=== PATIENT | female | born 1965 | race Caucasian/White ===

== ENCOUNTER → 2018-03-28 | Outpatient (CLI) | payer MEDICARE ==
[~2018-03-28] MED LIST: BACTRIM DS 8001 TAB PO; ELIDEL CREAM15 GM TP; FOSAMAX 70MG TA70 MG PO; HCTZ 25MG TAB25 MG PO; IMURAN 50MG TAB50 MG PO; KLOR-CON M2020 MEQ PO; MELATONIN3 M1 PO; PERCR 7.5 PO; PLAQUENIL 200M200 MG PO; PROVENTIL0.09 MG/A1 IH; REMERON 15M15 MG/TA1 PO; ULTRAM 50MG TAB50 MG PO; VITAMIN D1000 IU PO
== END ==
LOC: COL.RAD 09:31
DX: K75.4 Autoimmune hepatitis (principal); R93.2 Abnormal findings on diagnostic imaging of liver and biliary tract; K80.20 Calculus of gallbladder without cholecystitis without obstruction; I71.4 Abdominal aortic aneurysm, without rupture

== ENCOUNTER 2019-02-12 20:18 | Inpatient (IN) | payer MEDICARE ==
[~2019-02-12] VITALS: Ht 160 cm; Wt 51.3 kg
--- NOTE | 2019-02-12 21:30 | NUR ---
RECEIVED REPORT FROM MOHSEN FONG FROM [facility]. PT CAME INTO THEIR ER WITH C/O ABDOMINAL PAIN, NAUSEA AND VOMITING, GREEN DIARRHEA. ALSO PT'S SKIN IS JAUNDICE AND SCLERA WELL. PT IS A/O X4. PT HAD CT SCAN, WBC 16 CRITICAL CMP BILIRUBIN LEVELS 15.62, NA+123. ER DOCTOR THINKS SHE MAY HAVE SEPSIS. PT WAS GIVEN THERE 2 GM OF ROCHEPHIN, HAS LEFT FOREARM 22G, FENTANYL 20MCG GIVEN AT 195, ZOFRAN GIVEN AT 1741, TRAMADOL AT 180, AND GAVE ICE CHIPS. PT IS ALLERGIC TO MORPHINE. EMS, [facility], CALLED AND ADVISED THEY WERE 10 MINUTES OUT. VS WNL, HR 100 AND NSR, BP 126/75, O2 97l% ON ROOM AIR. ALSO PT WAS GIVEN 50 MCQ OF FENTANYL AT 2100, PAIN RATED AT 7/10, BUT PAIN NOW RATED AT 4/10.
[2019-02-12] MEDS ORDERED: PLAQUENIL 200M200 MG PO (22:24)
--- NOTE | 2019-02-12 22:46 | NUR ---
PT ARRIVED EMS AND SON ARRIVED AFTER SHE ARRIVED. PT'S VS WNL AND STABLE, FENTANYL WAS GIVEN 50 MCG IN ROUTE FOR ABDOMINAL PAIN. PT'S ABDOMEN IS DISTENDED AND TENDER, SKIN AND SCELRA ARE YELLOW. PT ADVISES THAT SHE HAS NOT BEEN ABLE TO URINATE AND IT IS PAINFUL WHEN SHE DOES. ALSO, PT HAS NOT HAD A BOWEL MOVEMENT FOR 5 DAYS. PT FEELS LIKE SHE HAS A KIDNEY INFECTION BECAUSE SHE HAS PLANK PAIN. NO FURTHER NEEDS CALL LIGHT WITHIN REACH.
[2019-02-12 22:51] VITALS: BP 124/67; PULSE 96; TEMP 97.2
--- NOTE | 2019-02-13 01:18 | NUR ---
PT IN BED WITH HOB AT 30 DEGREE ANGLE AND ADVISED THAT HER PAIN IS INCREASING AND IS NOW A 6/10. GAVE FENTANYL 25 MCG IV FOR PAIN. PT WAS ALSO COVERED WITH A WARM BLANKET FOR COMFORT. PT RESTING IN BED AT THIS TIME.
[2019-02-13 03:34] VITALS: BP 118/69; PULSE 93; TEMP 97.3
--- NOTE | 2019-02-13 04:00 | NUR ---
PLACED 16 SERBIAN WIN CATHETER, STERILE PROCEDURE PREFORMED, WITH 10CC OF STERILE WATER. PT HAD OUT 250ML OF ORANGISH/RED CLEAR URINE RETURN. PT HAD NOT URINATED SINCE SHE ARRIVED. PT NOW RESTING IN BED WITH HOB ELEVATED TO 30 DEGREE ANGLE. PT HAS PAIN IN ABDOMEN THAT RADIATES TO HER BACK RATED AT A 4/10 THAT IS SHARP. NO NEEDS AT THIS TIME, CALL LIGHT WITHIN REACH.
--- NOTE | 2019-02-13 06:05 | NUR ---
PT REFUSES SCDs. PT ADVISES THAT THOSE THINGS DRIVE HER NUTS AND SHE DOES NOT WANT THEM. PT IN BED WITH HOB ELEVATED TO 15 DEGREE ANGLE, SON AT BEDSIDE AND PAIN IS TOLERABLE AT THIS TIME. NO NEEDS AND CALL LIGHT WITHIN REACH.
[2019-02-13 06:31] LABS: HEMOGLOBIN 11.4 g/dl (12.5-16.0); MEAN CELL VOLUME 94 fl (80.0-100.0); MEAN CORPUSCULAR HEMOGLOBIN 34 pg (27.0-31.0); MEAN CORPUSCULAR HGB CONC 37 g/dl (33.0-37.0); MEAN PLATELET VOLUME 10.1 fl (7.4-10.4); PLATELET COUNT 89 K/mm3 (130-400); RED BLOOD COUNT 3.32 M/mm3 (4.10-5.30); REDCELL DISTRIBUTION WIDTH-CV 15.8 % (11.5-14.5)
[2019-02-13 06:35] LABS: HEMATOCRIT 31.2 % (37.0-47.0)
[2019-02-13 06:41] LABS: ALBUMIN 2.4 gm/dL (3.5-5.0); BILIRUBIN,TOTAL 12.9 mg/dL (0.0-1.0); CALCIUM 8.1 mg/dL (8.4-10.2); CREATININE, serum 0.63 (0.52-1.25); POTASSIUM 3.7 mmol/L (3.4-5.0); TOTAL PROTEIN 5.8 gm/dL (6.4-8.2)
[2019-02-13 06:47] LABS: INR 2.3 (0.8-3.0); PROTHROMBIN TIME 26.2 SECONDS (9.7-12.8)
[2019-02-13 06:57] LABS: BAND 2 % (0-10); EOSINOPHIL 7 % (0-4); LYMPHOCYTE 8 % (20.0-51.0); MYELOCYTE 2 % (0-0); NEUTROPHILS 73 % (42.0-75.2); PLATELET ESTIMATE DECREASED (NORMAL)
[2019-02-13 06:58] LABS: ANISOCYTOSIS 1+; TARGET CELLS 3+
[2019-02-13 06:59] LABS: TOXIC GRANULATION PRESENT
[2019-02-13 08:32] VITALS: BP 120/64; PULSE 99; TEMP 98.2
--- NOTE | 2019-02-13 09:11 | NUR ---
Patient assessment complete. Lung sounds diminished, bowel sounds present. Abdomen distended and firm. Per patient "this is better than it was yesterday but still in pain". No edema noted, pulses strong bilaterally. Heart RRR. Patient on room air, denies SOB, dizziness, palpitations, N/V. LFA IV has fluids running, no complications. Denies other needs at this time. Patient headed down for ultrasound and possible paracentesis.
[2019-02-13 10:28] LABS: PERITONEAL -POLYMORPHONUCLEAR 18.1 % (0-25); PERITONEAL FLUID RBC 1000 /mm3 (0-0)
--- NOTE | 2019-02-13 11:09 | NUR ---
BRIDGETTE student attended clinical rounding and met with the patient and her son Eliseo to discuss discharge planning. The patient recently moved in with her son Eliseo and they now reside in [place]. The patient reports independence with ADLs and has no DME. The patients PCP is Dr. Atiya Lucio and she gets her medications from [facility] pharmacy on [address]. The patient reports no difficulties obtaining her medications and states that her son helps roll picker her medications. The patient does not have DPOA-HC in EMR but was interested in completing one. BRIDGETTE provided a DPOA-HC form and will follow up to witness sign. The patient plans to return home with her son Eliseo upon discharge. No additional needs anticipated at this time.
--- NOTE | 2019-02-13 14:30 | NUR ---
patient in bed with son at bedside. patient has ordered lunch, tsang catheter draining dark urine. IVF infusing. Patient has no complaints at this time. Call light within reach.
[2019-02-13 16:19] VITALS: BP 120/66; PULSE 116; TEMP 97.8
--- NOTE | 2019-02-13 19:42 | NUR ---
CALLED LUPILLO GARRETT AND ADVISED THAT PT HAD WIN BAG ON BED NEXT TO HER AND URINE WAS DRAINING BACK UP THE TUBE. ALSO, PT REQUESTED TO HAVE WIN CATHETER TAKEN OUT. RECEIVED ORDERS FROM LUPILLO GARRETT TO DISCONTINUE THE WIN CATHETER.
--- NOTE | 2019-02-13 20:09 | NUR ---
PT IN BED WITH HOB ELEVATED TO 45 DEGREE ANGLE, REMOVED WIN CATHETER REQUESTED. TAKEN OUT 10CC OF STERILE WATER FROM [facility]. PT ADVISES THAT PAIN AT THIS TIME IS AT A 5/10 THAT IS INTERMITTEN SHARP PAIN IN ABDOMEN THAT RADIATES TO BACK. CALL LIGHT WITHIN REACH.
--- NOTE | 2019-02-13 20:22 | NUR ---
Report given to HETAL Ash.
[2019-02-13 20:32] VITALS: BP 119/63; PULSE 86; TEMP 97.4
--- NOTE | 2019-02-13 21:26 | NUR ---
PT AND PT'S SON REQUESTED NICOTINE PATCH. PT'S SON ADVISES THAT SHE SMOKES 2 PACKS A DAY. CALLED LUPILLO GARRETT OF HER REQUEST FOR A NICOTINE PATCH. LUPILLO GARRETT PUT ORDER IN FOR NICOTINE PATCH.
--- NOTE | 2019-02-13 22:53 | NUR ---
PT WAS GIVEN FENTANYL FOR PAIN AND PT ADVISED THAT SHE WANTED TO TRY AND SLEEP MUCH POSSIBLE. PT HAD NICOTINE PATCH PLACED ON RIGHT UPPER SHOULDER BLADER. PT'S SON HAD LEFT. PT IN BED RESTING WITH HOB ELEVATED TO 45 DEGREE ANGLE. NO FURTHER NEEDS CALL LIGHT WITHIN REACH.
[2019-02-13 23:35] VITALS: BP 122/66; PULSE 99; TEMP 98.9
--- NOTE | 2019-02-13 23:50 | NUR ---
PT WAS ADVISED THAT SHE WAS GOING TO BE NPO. PT WAS GIVEN A SNACK TO EAT BEFORE MIDNIGHT. PT DID NOT MAKE IT TO THE BATHROOM AND URINATED IN A SMALL MOUTH BASIN. PT ADVISED THAT SHE HAD URINATED X3 SINCE THE CATHETER HAS BEEN REMOVED. PT ADVISES THAT SHE IS PEEING A LITTLE AT A TIME, BUT IT IS COMING OUT. PLACED COMMODE AT BEDSIDE FOR PT. NO FURTHER NEEDS AND CALL LIGHT WITHIN REACH.
[2019-02-14] VITALS (17 sets, daily range): BP systolic 101–136; BP diastolic 62–85; PULSE 78–90; TEMP 97.6–98.7
--- NOTE | 2019-02-14 01:20 | NUR ---
PT REQUESTED TO HAVE WIN CATHETER PLACED BACK IN. PT ADVISED THAT SHE IS VERY UNCOMFORTABLE AND IS UNABLE TO VOID NOW. CALLED LUPILLO GARRETT AND ADVISED THAT PT WANTS A WIN AGAIN. LUPILLO GARRETT ADVISED GAVE ORDERS TO DO A BLADDER SCAN AND CALL HER BACK WITH THE RESIDUALS.
--- NOTE | 2019-02-14 02:03 | NUR ---
PT WAS BLADDER SCANNED AND ONLY HAD 195 ML OF RESIDUAL IN HER BLADDER. LUPILLO CHIEF UNIT FORESTER NOTIFIED. LUPILLO CHIEF UNIT FORESTER GAVE ORDER OF ATIVAN 1MG IV, FOR ANXIETY. PT IS ANXIOUS DUE TO BIOPSY IN AM. ALSO, PT HAS PAIN AT 7/10 IN ABD/BACK, FENTANYL GIVEN FOR PAIN.
--- NOTE | 2019-02-14 04:44 | NUR ---
BLADDER SCANNED PT AND PT ONLY HAD 264 ML OF RESIDUAL URINE IN BLADDER. PT STILL HAS NOT BEEN ABLE TO URINATE. PT IN BED RESTING COMFORTABLY WITH HOB AT 30 DEGREE ANGLE, PT DENIES PAIN AT THIS TIME. NO NEEDS AND CALL LIGHT WITHIN REACH.
[2019-02-14 07:21] LABS: HEMOGLOBIN 11.6 g/dl (12.5-16.0); MEAN CELL VOLUME 95 fl (80.0-100.0); MEAN CORPUSCULAR HEMOGLOBIN 34 pg (27.0-31.0); MEAN CORPUSCULAR HGB CONC 36 g/dl (33.0-37.0); MEAN PLATELET VOLUME 9.7 fl (7.4-10.4); PLATELET COUNT 62 K/mm3 (130-400); RED BLOOD COUNT 3.39 M/mm3 (4.10-5.30); REDCELL DISTRIBUTION WIDTH-CV 16.5 % (11.5-14.5)
[2019-02-14 07:25] LABS: HEMATOCRIT 32.1 % (37.0-47.0)
[2019-02-14 07:27] LABS: INR 2.3 (0.8-3.0); PROTHROMBIN TIME 25.6 SECONDS (9.7-12.8)
[2019-02-14 07:39] LABS: ALBUMIN 2.2 gm/dL (3.5-5.0); BILIRUBIN,TOTAL 13.8 mg/dL (0.0-1.0); CALCIUM 7.7 mg/dL (8.4-10.2); CREATININE, serum 0.48 (0.52-1.25); POTASSIUM 3.7 mmol/L (3.4-5.0); TOTAL PROTEIN 5.8 gm/dL (6.4-8.2)
[2019-02-14 08:26] LABS: ANISOCYTOSIS 1+; BASOPHIL 2 % (0-2); EOSINOPHIL 1 % (0-4); LYMPHOCYTE 7 % (20.0-51.0); NEUTROPHILS 81 % (42.0-75.2); PLATELET ESTIMATE DECREASED (NORMAL); TARGET CELLS 3+
--- NOTE | 2019-02-14 11:09 | NUR ---
Began FFP transfusion. This nurse will stay at bedsice for first 15 min. Informed pt of any adverse affects and informed her to alert nurse if she feels any flushing, shortness of breath or increased heart rate.
--- NOTE | 2019-02-14 11:16 | NUR ---
Pt lying in bed eyes closed, awakens to verbal stimuli. Denies any pain at this moment. Pt face is jaundice, abdomen distended, slightly firm. Breathing even and unlabored. Completed morning assessment. Pt C/O being weak and tired, still NPO and requesting water. Small sip of water given with morning medication. Denies any other needs at this time. Will continue to monitor.
--- NOTE | 2019-02-14 11:28 | NUR ---
No adverse reactions in the first 15 min, put on 500ml an hour. Will continue to monitor.
[2019-02-14 12:58] LABS: INR 1.9 (0.8-3.0); PROTHROMBIN TIME 21.4 SECONDS (9.7-12.8)
--- NOTE | 2019-02-14 14:26 | NUR ---
BEGAN FFP ADMINISTRATION. PT AWARE OF ALL ADVERSE AFFECTS. VITALS STABLE THIS RN WILL STAY AT BEDSIDE FOR FIRST 15 MIN.
--- NOTE | 2019-02-14 14:40 | NUR ---
Pt down to CT for liver biopsy. FFP still transfusing. Two new IV started to right arm, 22g to RF and 20g to RH.
--- NOTE | 2019-02-14 14:50 | NUR ---
PT IS BROUGHT INTO THE ROOM AND PLACEDON THE BED. MONITORING EQUIPMENT PLACED ON PT. TIME OUT DONE.
--- NOTE | 2019-02-14 15:05 | NUR ---
REPORT CALLED TO CASEY FONG. PT HAD NO MEDS GIVEN. GELFOAM SLURRY GIVEN THROUGH INTRODUCER NEEDLE. VSS THROUGHT PROCEDURE.
--- NOTE | 2019-02-14 15:26 | NUR ---
Pt back to floor from procedure. FFP transfusion complete. Vital signs stable, pt drowsy but alert and oriented. Denies any pain at this time,
--- NOTE | 2019-02-14 15:37 | NUR ---
COMPLETED BLADDER SCAN, 500ML RESIDUAL, PT STATES SHE IS UNABLE TO URINATE. CALLED SIMONA KLEIN AND NOTIFIED HER.
--- NOTE | 2019-02-14 18:18 | NUR ---
Pt lying in bed, breathing even and unlabored. C/O pain 6/10 to abdomen. Medications administered per emar. Denies any other needs. Son in room, ordering dinner. Call light in reach.
--- NOTE | 2019-02-14 22:00 | NUR ---
Completed medication administration and assessment; PT able to tolerate all cares and medications; PT expressed concern about having bowel movement; PT has bowel sounds, is passing gas, and has had some undocumented liquid stool per report to hospitalist; No further assessed or verbalized needs at time of exit; PT able to return to comfortable position in bed with personal items and call light within reach; PT A&Ox4, BS active x4, HRRR, skin jaundice, with yellowing of the sclera, distended ADB, voiding without pain/discomfort, NS continues to run at 60ml/hr to RFA IV; Will continue to monitor. CDA
--- NOTE | 2019-02-15 03:07 | NUR ---
PT resting well in bed intermittently; PT able to void throughout night without C/O discomfort or fullness; No further assessed or verbalized concerns at times of rounds; PT able to return to a comfortable position in bed with personal item and call light within reach; Will continue to monitor. CDA
[2019-02-15 04:33] VITALS: BP 113/68; PULSE 85; TEMP 97.9
--- NOTE | 2019-02-15 07:17 | NUR ---
Report given to HETAL Oliva; No significant changes or concerns at time of shift change. CDA
[2019-02-15 07:21] VITALS: BP 116/66; PULSE 89; TEMP 98.2
[2019-02-15 07:48] LABS: HEMOGLOBIN 11.2 g/dl (12.5-16.0); MEAN CELL VOLUME 98 fl (80.0-100.0); MEAN CORPUSCULAR HEMOGLOBIN 35 pg (27.0-31.0); MEAN CORPUSCULAR HGB CONC 36 g/dl (33.0-37.0); MEAN PLATELET VOLUME 10.2 fl (7.4-10.4); PLATELET COUNT 53 K/mm3 (130-400); RED BLOOD COUNT 3.22 M/mm3 (4.10-5.30); REDCELL DISTRIBUTION WIDTH-CV 16.8 % (11.5-14.5)
[2019-02-15 07:49] LABS: HEMATOCRIT 31.4 % (37.0-47.0)
[2019-02-15 07:51] LABS: PROTHROMBIN TIME 22.4 SECONDS (9.7-12.8)
[2019-02-15 07:54] LABS: ALBUMIN 2.4 gm/dL (3.5-5.0); BILIRUBIN,TOTAL 15.7 mg/dL (0.0-1.0); CALCIUM 7.9 mg/dL (8.4-10.2); CREATININE, serum 0.38 (0.52-1.25); POTASSIUM 3.2 mmol/L (3.4-5.0)
[2019-02-15 08:14] LABS: ANISOCYTOSIS 1+; BAND 8 % (0-10); EOSINOPHIL 1 % (0-4); LYMPHOCYTE 7 % (20.0-51.0); METAMYELOCYTE 1 % (0-0); NEUTROPHILS 73 % (42.0-75.2); PLATELET ESTIMATE DECREASED (NORMAL)
[2019-02-15 08:17] LABS: TARGET CELLS 1+
[2019-02-15 13:24] VITALS: BP 122/75; PULSE 88; TEMP 98.2
[2019-02-15 15:39] VITALS: BP 125/74; PULSE 91; TEMP 98
[2019-02-15 20:29] VITALS: BP 138/83; PULSE 93; TEMP 98.4
--- NOTE | 2019-02-15 20:30 | NUR ---
Completed assessment and medication administration; PT able to tolerate all cares well; No further assessed or verbalized concerns at time of exit; PT A&Ox4, BS active x4 lungs CTAB with bilateral diminished bases, IND AMB in room and to bathroom; PT able to return to comfortable position in bed with personal items and call light within reach; Will continue to monitor. CDA
--- NOTE | 2019-02-16 | NUR ---
PT experienced bowel incontience; Total bed change provided; PT opted to lay on window couch for change of position and better comfort. Will continue to monitor. CDA
[2019-02-16 01:01] VITALS: BP 141/83; PULSE 81; TEMP 97.6
--- NOTE | 2019-02-16 03:22 | NUR ---
PT resting well in bed; No further assessed or verbalized concerns or complaints at time of rounds; PT resting in comfortable position in bed with personal items and call light within reach; Will continues to monitor. CDA
[2019-02-16 04:38] VITALS: BP 124/81; PULSE 94; TEMP 97.8
--- NOTE | 2019-02-16 06:59 | NUR ---
Report given to HETAL Oliva; No significant changes or concerns at time of shift change. CDA
[2019-02-16 07:12] LABS: HEMOGLOBIN 12.6 g/dl (12.5-16.0); MEAN CELL VOLUME 98 fl (80.0-100.0); MEAN CORPUSCULAR HEMOGLOBIN 35 pg (27.0-31.0); MEAN CORPUSCULAR HGB CONC 36 g/dl (33.0-37.0); MEAN PLATELET VOLUME 10.6 fl (7.4-10.4); PLATELET COUNT 59 K/mm3 (130-400); RED BLOOD COUNT 3.61 M/mm3 (4.10-5.30); REDCELL DISTRIBUTION WIDTH-CV 17.8 % (11.5-14.5)
[2019-02-16 07:14] LABS: HEMATOCRIT 35.3 % (37.0-47.0)
[2019-02-16 07:20] LABS: INR 2.1 (0.8-3.0)
[2019-02-16 07:23] LABS: ALBUMIN 2.5 gm/dL (3.5-5.0); BILIRUBIN,TOTAL 19.5 mg/dL (0.0-1.0); CALCIUM 8.1 mg/dL (8.4-10.2); CREATININE, serum 0.41 (0.52-1.25); MAGNESIUM 1.8 mg/dL (1.6-2.3); POTASSIUM 3.3 mmol/L (3.4-5.0); TOTAL PROTEIN 6.3 gm/dL (6.4-8.2)
[2019-02-16 07:28] LABS: ANISOCYTOSIS 1+; BAND 11 % (0-10); EOSINOPHIL 1 % (0-4); LYMPHOCYTE 4 % (20.0-51.0); METAMYELOCYTE 1 % (0-0); NEUTROPHILS 76 % (42.0-75.2); PLATELET ESTIMATE DECREASED (NORMAL)
[2019-02-16 09:20] VITALS: BP 125/75; PULSE 98; TEMP 98.3
[2019-02-16 11:23] VITALS: BP 127/80; PULSE 94; TEMP 98.7
[2019-02-16 14:57] VITALS: BP 118/72; PULSE 87; TEMP 97.2
--- NOTE | 2019-02-16 20:00 | NUR ---
Patient resting in bed, some nausea- doesn't want anything yet. Assessment completed. Given PO lactulose, no N/V. Given pain medication right before evening shift- controlled. NO further needs at this time.
[2019-02-16 20:19] VITALS: BP 142/87; PULSE 91; TEMP 98.2
[2019-02-17 00:10] VITALS: BP 131/77; PULSE 93; TEMP 97.8
[2019-02-17 03:59] VITALS: BP 131/79; PULSE 91; TEMP 97.9
--- NOTE | 2019-02-17 04:53 | NUR ---
Pt slept mosto f the night, VSS, afebrile, blood sugars stable in 90's. No needs at this time.
[2019-02-17 06:36] LABS: MUCOUS Present /lpf; URINE BACTERIA Many /hpf
[2019-02-17 06:37] LABS: PH 6 (5-8); URINE APPEARANCE Turbid; URINE BILIRUBIN Positive (NEGATIVE); URINE BLOOD 1+ (NEGATIVE); URINE COLOR Red; URINE GLUCOSE Negative (NEGATIVE); URINE KETONE Trace (NEGATIVE); URINE LEUKOCYTE ESTERASE Negative (NEGATIVE); URINE NITRATE Negative (NEGATIVE); URINE PROTEIN(semi-quant) 1+ (NEGATIVE); URINE UROBILINOGEN >=4.0 mg/dL (NEGATIVE)
--- NOTE | 2019-02-17 06:52 | NUR ---
REPORT GIVEN TO HETAL ENRIQUEZ
[2019-02-17 06:54] LABS: COLLECTION METHOD CLEAN CATCH
[2019-02-17 07:49] LABS: HEMOGLOBIN 13.1 g/dl (12.5-16.0); MEAN CELL VOLUME 98 fl (80.0-100.0); MEAN CORPUSCULAR HEMOGLOBIN 35 pg (27.0-31.0); MEAN CORPUSCULAR HGB CONC 36 g/dl (33.0-37.0); MEAN PLATELET VOLUME 10.4 fl (7.4-10.4); PLATELET COUNT 59 K/mm3 (130-400); RED BLOOD COUNT 3.74 M/mm3 (4.10-5.30)
[2019-02-17 07:55] LABS: HEMATOCRIT 36.7 % (37.0-47.0)
[2019-02-17 08:01] VITALS: BP 126/73; PULSE 94; TEMP 97.9
--- NOTE | 2019-02-17 08:10 | NUR ---
Assessment complete. Pt is AXO X3, states she has pain in her ABD rated at a 9/10. Breathing is even and unlabored on room air. Tele on. RF and RH INT's both flush easily, remain free of complications, and are CDI. Pt has friends at the bedside. She is resting quielty in the bed at this time and she denies further needs. Call light within reach, will continue to monitor.
[2019-02-17 08:13] LABS: ALBUMIN 2.4 gm/dL (3.5-5.0); BILIRUBIN,TOTAL 20.4 mg/dL (0.0-1.0); CALCIUM 8.1 mg/dL (8.4-10.2); CREATININE, serum 0.47 (0.52-1.25); POTASSIUM 3.3 mmol/L (3.4-5.0); TOTAL PROTEIN 6.3 gm/dL (6.4-8.2)
[2019-02-17 08:57] LABS: EOSINOPHIL 1 % (0-4); LYMPHOCYTE 6 % (20.0-51.0); NEUTROPHILS 90 % (42.0-75.2); PLATELET ESTIMATE DECREASED (NORMAL)
[2019-02-17 08:58] LABS: TEAR DROP CELLS 1+
--- NOTE | 2019-02-17 10:58 | NUR ---
BRIDGETTE attended clinical rounds. Also present was palliative care nurse, Martha. The hospitalist discussed the patient's prognosis and the option of hospice. The patient reports that she is not wanting chemo and would like to focus on comfort and return home on hospice. BRIDGETTE and palliative care nurse, Martha, then followed up with the patient, the patient's son (Eliseo), and her friends. The patient's family are supportive of the patient's decision. The son is reporting that they will need help for 24 hour care, while he is at work. BRIDGETTE provided the patient and patient's friend with a list of agencies that can provide 24 hour care and their prices. The patient's friend reports that she will give the list to the patient's son and that they then look over it. Palliative Care Nurse, Martha, also discussed the different agencies that provide hospice in the home. The patient's family plan to discuss the options. SW to continue to follow.
--- NOTE | 2019-02-17 11:46 | NUR ---
The patient's son, Eliseo, informed BRIDGETTE that they have chosen [facility] and would like to meet with them today. BRIDGETTE contacted and faxed a referral to [facility]. [facility] reports that they can have have one of their representatives meet with the patient and patient's son today around 1300. SW informed the patient's son. SW to continue to follow.
--- NOTE | 2019-02-17 12:06 | NUR ---
Palliative care nurse and social media project manager met with family after rounding to further discuss options of going home with hospice services. Pt has completed a DPOA-HC and it is on the chart naming her son Eliseo and friend Fco. After discussion, family has decided to meet with [facility] and discuss their situation with them. Son Eliseo has asked for names of agencies that could provide signal inspector care when family is not able to be there. [facility] representative should be here around 1pm to meet with pt and her son. Pt did advise this nurse that she is allergic to morphine as it makes her throw up! SIMONA Lauren, advised of this concern. Comfort quilt provided. Comfort care basket requested.
[2019-02-17 12:23] VITALS: BP 135/80; PULSE 88; TEMP 98
--- NOTE | 2019-02-17 14:49 | NUR ---
Dr Wood was notified of [facility]'s request to place pleurx drain for ascites but after discussion with radiologist, we will not be able to have drain placed. There is too little fluid to place the drain safely and her PT/INR is high and would be very difficult to get PT/INR to a safe level to attempt drain placement. Alisa with [facility] notified.
[2019-02-17 16:01] VITALS: BP 138/81; PULSE 95; TEMP 97.8
--- NOTE | 2019-02-17 19:24 | NUR ---
Pt has been resting on and off throughout the day. She has had constant pain in her ABD. Pain medication administered on DEC. Family members have been at the bedside; all questions answered. Pt is resting quietly in the bed at this time and she denies further needs. Call light within reach. Report given to HETAL Oliveira.
[2019-02-17 19:36] VITALS: BP 132/77; PULSE 86; TEMP 98.7
--- NOTE | 2019-02-17 20:03 | NUR ---
Patient resting in bed [facility] family at bedside. Assessment copmleted, no reports of pain. VSS, afebrile. Pt took evening medications. IV flushed, no complications. No needs at this time.
[2019-02-18 00:40] VITALS: BP 141/78; PULSE 93; TEMP 98.2
[2019-02-18 04:25] VITALS: BP 137/69; PULSE 85; TEMP 98.1
--- NOTE | 2019-02-18 04:53 | NUR ---
Pt slept most ofhte night, no reports of pain, VSS. NO needs at this time.
[2019-02-18 06:27] LABS: HEMOGLOBIN 13.2 g/dl (12.5-16.0); MEAN CELL VOLUME 94 fl (80.0-100.0); MEAN CORPUSCULAR HEMOGLOBIN 35 pg (27.0-31.0); MEAN CORPUSCULAR HGB CONC 37 g/dl (33.0-37.0); MEAN PLATELET VOLUME 10.4 fl (7.4-10.4); PLATELET COUNT 71 K/mm3 (130-400); RED BLOOD COUNT 3.78 M/mm3 (4.10-5.30); REDCELL DISTRIBUTION WIDTH-CV 19.1 % (11.5-14.5)
[2019-02-18 06:28] LABS: HEMATOCRIT 35.7 % (37.0-47.0)
[2019-02-18 06:35] LABS: INR 2.4 (0.8-3.0); PROTHROMBIN TIME 27.1 SECONDS (9.7-12.8)
[2019-02-18 06:38] LABS: ALBUMIN 2.4 gm/dL (3.5-5.0); CALCIUM 7.9 mg/dL (8.4-10.2); CREATININE, serum 0.55 (0.52-1.25); MAGNESIUM 1.8 mg/dL (1.6-2.3); POTASSIUM 3.5 mmol/L (3.4-5.0); TOTAL PROTEIN 6.2 gm/dL (6.4-8.2)
--- NOTE | 2019-02-18 07:10 | NUR ---
report given to ramila acrmen
[2019-02-18 07:45] LABS: BAND 4 % (0-10); LYMPHOCYTE 2 % (20.0-51.0); NEUTROPHILS 92 % (42.0-75.2); PLATELET ESTIMATE DECREASED (NORMAL)
[2019-02-18 07:46] LABS: ANISOCYTOSIS 2+; TARGET CELLS 1+
[2019-02-18 08:26] VITALS: BP 136/65; PULSE 102; TEMP 98.2
--- NOTE | 2019-02-18 09:06 | NUR ---
Alisa, from [facility], reports that they can accept the patient. The patient's son, Eliseo, reports that he plans to take a leave of absence from work; so that he can be in the home at all times. The patient's son would like to use today, 02/18, to get things at work all figured out and to get the DME in the home. SW to continue to follow.
--- NOTE | 2019-02-18 09:25 | NUR ---
Pt reports her pain medication has been working pretty well but she gets awakened frequently with people coming in to check on her. She has been accepted by [facility], her pathology has come back with diagnosis of pancreatic cancer based on tissue sample and [id number]. her family is using today to get things ready for her at home with discharge planned tomorrow.
--- NOTE | 2019-02-18 09:57 | NUR ---
Patient laying in bed. Assessment complete. Lung sounds diminished. Heart rate tachy. Bowel sounds present. Patient is jaundice. States she is nauseous but only "gagging", no vomiting. States her back and abdomen are hurt, pain is 7/10. Received fentanyl. Denies SOB, chest pain, dizziness. Denies palpitations. Radial pulses strong bilaterally. Abdomen is distended and firm. Patient declined bed change. Extremities cool. Patient denies other needs at this time. Call light within reach.
--- NOTE | 2019-02-18 11:21 | NUR ---
First visit from the psychiatric specialist. No needs right now.
--- NOTE | 2019-02-18 11:39 | NUR ---
In response to pt's request, we have ordered some sherbert for her to try and her friend has gone to get her some watermelon. We are starting her on a fentanyl patch and will try roxanol to see how she tolerates it here. I spoke with Nieves, safety investigator, who will order a fruit smoothie for her around 2pm today to see if we can find something she can eat even a little of. I also gave her some printed information on foods that have high calories, are best tolerated with nausea, and suggested snacks. I explained to her that it will be an experiment to see what works and what doesn't but it is my hope that at least some of these suggestions might work for her.
--- NOTE | 2019-02-18 16:47 | NUR ---
BRIDGETTE contacted the patient's son, Eliseo, to follow up on the status of him taking a leave of absence from work. Eliseo informed BRIDGETTE that he plans to finish out this week of work and will have help from his family members. He states that his aunt is coming down tomorrow evening and then his grandpa will be coming to help. Eliseo also informed BRIDGETTE that [facility] delivered all of the patient's DME to their home this morning. BRIDGETTE to continue to follow.
--- NOTE | 2019-02-18 18:24 | NUR ---
Patient has had uneventful day. Pain well controlled with fentanyl patch and k-pack. Patient has slept throughout the day. Son and friend at bedside earlier in the day. Patient has not had much of an appetite. Patient rating pain at 9/10. Patient cooperative with cares throughout the day, not very talkative. Denies other needs at this time.
--- NOTE | 2019-02-18 19:10 | NUR ---
Report given to HETAL Oliveira.
--- NOTE | 2019-02-18 19:43 | NUR ---
Patient resting in bed. Given pain medication prior to evening shift- pt does not report any pain at this time. On comfort cares. Given cup of ice an danother cup of ice water. No needs at this time.
--- NOTE | 2019-02-19 07:04 | NUR ---
Pt slept on/off last night, given pain medication x1 and nausea medication x1 towards beginning of shift. Report given to HETAL Oliva.
[2019-02-19] MEDS ORDERED: FENTANYL 25 MCG TD (09:01)
[2019-02-19] MEDS ORDERED: ROXANOL 20MG20 MG/ML SL (09:01)
[2019-02-19] MEDS ORDERED: ATIVAN 0.50.5 MG/TAB PO (09:02)
[2019-02-19] MEDS ORDERED: LACTULOSE10 GM/153 PO (09:02)
[2019-02-19] MEDS ORDERED: DULCOLAX S10 MG/SUPP RC (09:02)
[2019-02-19] MEDS ORDERED: TRANSDERM-0.5 MG/21 TD (09:03)
[2019-02-19] MEDS ORDERED: ZOFRAN ODT4 MG PO (09:03)
[2019-02-19] MEDS ORDERED: MIRALAX PA17 GM/Dose PO (09:03)
--- NOTE | 2019-02-19 09:58 | NUR ---
Talked with patient again this morning. She reports her pain is pretty well managed with the patch. She did tell me that she had tried roxanol once "but thinks something made her throw up". She is anxious to get home so she can sleep. She reports that things are ready at home for her. Jojo JARVIS has seen pt and will be finishing discharge orders.
--- NOTE | 2019-02-19 10:26 | NUR ---
The patient is to discharge back home today, 02/19, on hospice through [facility]. Transportation was set for around 1030, via [facility]. BRIDGETTE informed the patient, patient's son, nurse, and [facility]. They were all in agreeance. BRIDGETTE also presented and explained the IM form to the patinet's son (Eliseo). The patient's son verbalized understanding, signed, and he was provided a copy. The patient and patient's son was also interested in completing a General DPOA-HC. BRIDGETTE notified Viki grimm. Viki riosarized the form. BRIDGETTE and mexican food cook, juliane Suarez. No additional needs at this time.
--- NOTE | 2019-02-19 11:30 | NUR ---
Pt transported to home with Hospice with EMS. Son at bedside - all belongings sent with pt
== END 2019-02-19 11:30 | disposition hospice, home (50) | DRG 435 ==
LOC: MEDICAL 20:18
PROVIDERS: Internal Medicine; Internal Medicine Gastroenterology; Nurse Practitioner; Physician Assistant; ADMIT Hospitalist
PROC: 0W9G3ZZ Drainage of Peritoneal Cavity, Percutaneous Approach (ICD-10-PCS; 2019-02-13)
PROC: 0FB23ZX Excision of Left Lobe Liver, Percutaneous Approach, Diagnostic (ICD-10-PCS; principal; 2019-02-14)
DX: C25.9 Malignant neoplasm of pancreas, unspecified (principal); E43 Unspecified severe protein-calorie malnutrition; E87.1 Hypo-osmolality and hyponatremia; R18.8 Other ascites; R65.10 Systemic inflammatory response syndrome (SIRS) of non-infectious origin without acute organ dysfunction; E72.20 Disorder of urea cycle metabolism, unspecified; C78.7 Secondary malignant neoplasm of liver and intrahepatic bile duct; I78.1 Nevus, non-neoplastic; K74.60 Unspecified cirrhosis of liver; E87.6 Hypokalemia; Z66 Do not resuscitate; R30.0 Dysuria; Z68.20 Body mass index [BMI] 20.0-20.9, adult; E88.09 Other disorders of plasma-protein metabolism, not elsewhere classified; R91.1 Solitary pulmonary nodule; D69.6 Thrombocytopenia, unspecified; E16.2 Hypoglycemia, unspecified; Z87.891 Personal history of nicotine dependence; Z86.19 Personal history of other infectious and parasitic diseases; Z88.6 Allergy status to analgesic agent
CPT/HCPCS: 99223-AI; 99231-AI; 99233-AI; 99239; A4216; J0696; J2060; J2405; J3010; J7030; J7500; Q9967